=== PATIENT | female | born 1965 | race Caucasian/White ===

== ENCOUNTER → 2022-09-06 | Outpatient (POV) | payer OTHER ==
[~2022-09-06] VITALS: Ht 172.7 cm; Wt 72.7 kg
[2022-09-06 08:55] VITALS: BP 112/69
== END ==
LOC: M IRPOV 08:49
PROVIDERS: ATTEND Radiology Diagnostic Radiology
DX: D18.01 Hemangioma of skin and subcutaneous tissue (principal); E78.5 Hyperlipidemia, unspecified; F17.210 Nicotine dependence, cigarettes, uncomplicated; F25.9 Schizoaffective disorder, unspecified; I10 Essential (primary) hypertension; I25.10 Atherosclerotic heart disease of native coronary artery without angina pectoris; I65.29 Occlusion and stenosis of unspecified carotid artery; K21.9 Gastro-esophageal reflux disease without esophagitis; Z95.5 Presence of coronary angioplasty implant and graft